=== PATIENT | female | born 1990 | race Caucasian/White ===

== ENCOUNTER 2017-08-22 01:26 | Emergency (ER) | payer OTHER ==
[2017-08-22 02:21] VITALS: BP 109/74; RESP 16
--- NOTE | 2017-08-22 03:22 | C.PDOC ---
History Of Present Illness 27 year old female presents to the ED for evaluation of tongue swelling sensation and FB sensation in throat which she believes to be affecting her breathing. Patient is concerned that she is having an allergic reaction although she has no such past history of similar allergic reactions. Pt is pen- allergic but has not taken any since. No new or unusual exposures. She took Benadryl at home and had mild but transient relief. No rash or chest tightness. Time Seen by Provider: 08/22/17 02:27 Chief Complaint (Nursing): ENT Problem History Per: Patient History/Exam Limitations: no limitations Onset/Duration Of Symptoms: Hrs Current Symptoms Are (Timing): Still Present Recent travel outside of the [place]: No Past Medical History Reviewed: Historical Data, Nursing Documentation, Vital Signs Vital Signs: Last Vital Signs Temp 98 F 08/22/17 02:15 Pulse 91 H 08/22/17 02:15 Resp 16 08/22/17 02:15 BP 109/74 08/22/17 02:15 Pulse Ox 99 08/22/17 03:53 Family History: States: No Known Family Hx - Social History Hx Alcohol Use: No Hx Substance Use: No - Immunization History Hx Tetanus Toxoid Vaccination: Yes Hx Influenza Vaccination: Yes Hx Pneumococcal Vaccination: Yes Review Of Systems Constitutional: Negative for: Fever, Chills ENT: Positive for: Other (Tongue swelling ). Negative for: Ear Pain, Throat Pain Cardiovascular: Negative for: Chest Pain Respiratory: Positive for: Shortness of Breath. Negative for: Cough Gastrointestinal: Negative for: Nausea, Vomiting, Abdominal Pain, Diarrhea Skin: Negative for: Rash Neurological: Negative for: Headache Physical Exam - Physical Exam Appears: Well, Non-toxic, No Acute Distress Skin: Normal Color, Warm, Dry Head: Atraumatic, Normacephalic Eye(s): bilateral: Normal Inspection, PERRL, EOMI Nose: Normal Oral Mucosa: Moist Tongue: Normal Appearing, No Swelling Lips: Normal Appearing, No Swelling Throat: Normal Neck: Normal ROM, Trachea Midline, Supple Chest: Symmetrical Cardiovascular: Rhythm Regular (Rate Regular ) Respiratory: Normal Breath Sounds, No Rales, No Rhonchi, No Stridor, No Wheezing Back: Normal Inspection Extremity: Normal ROM, No Deformity Neurological/Psych: Oriented x3, Normal Speech Gait: Steady ED Course And Treatment O2 Sat by Pulse Oximetry: 99 Progress Note: Given Prednisone PO. Patient in no distress, comfortable. She will continue Benadryl at home. Will discharge home. Strict return instructions given. Disposition - Disposition Referrals: [facility] [Outside] Disposition: HOME/ ROUTINE Disposition Time: 03:50 Condition: STABLE Additional Instructions: Continue benadryl Continue PO prednisone Tylenol or advil if pain Return to er if oralo swelling, difficulty BREATHING OR worse Prescriptions: predniSONE [Prednisone] 40 mg PO DAILY #8 tab Forms: [facility] (Vietnamese), General Discharge Instructions Print Language: AMHARIC - Clinical Impression Clinical Impression: Allergic reaction - Scribe Statement The provider has reviewed the documentation as recorded by the Scribe (Thee Bustos) All medical record entries made by the Scribe were at my direction and personally dictated by me. I have reviewed the chart and agree that the record accurately reflects my personal performance of the history, physical exam, medical decision making, and the department course for this patient. I have also personally directed, reviewed, and agree with the discharge instructions and disposition.
[2017-08-22 04:16] VITALS: PULSE 89; TEMP 97.9; O2SAT 97
== END 2017-08-22 04:15 | disposition home or self-care (01) ==
LOC: C.ER 01:26
DX: T78.40XA Allergy, unspecified, initial encounter (principal); X58.XXXA Exposure to other specified factors, initial encounter